=== PATIENT | male | born 1965 | race African-American/Black ===

== ENCOUNTER 2018-05-30 17:17 | Inpatient (IN) | payer OTHER ==
[2018-05-30] MEDS ORDERED: DEXTROSE 50% 50 ML SYRINGE IV ×2 (19:30)
[2018-05-30] MEDS ORDERED: GLUCOSE GEL 15 GRAM TUBE PO ×2 (19:30)
[2018-05-30] MEDS ORDERED: GLUCOSE GEL 15 GRAM TUBE BUCCAL (19:30)
[2018-05-30] MEDS ORDERED: GLUCAGON 1 MG INJ IM (19:30)
[2018-05-30] MEDS ORDERED: **FLU VACCINE PREVIOUSLY DISPENSED XX (20:00)
[2018-05-30] MEDS: SOD CHLORIDE 0.45% 1,000 ML IV (20:40)
[2018-05-30] MEDS: INSULIN ASPART [NOVOLOG] 3 ML PEN SC (21:00)
[2018-05-31] MEDS: morphine 4 MG/ML VIAL IV ×4 (01:03→20:53)
[2018-05-31] MEDS: ACCU-CHEK XX (02:00)
[2018-05-31] MEDS: INSULIN ASPART [NOVOLOG] 3 ML PEN SC ×4 (08:00→21:00)
[2018-05-31] MEDS ORDERED: VANCOMYCIN IV PER PHARMACY XX (08:30)
[2018-05-31] MEDS: SOD CHLORIDE 0.45% 1,000 ML IV (08:50)
[2018-05-31] MEDS ORDERED: CADEXOMER IODINE TP (09:00)
[2018-05-31] MEDS ORDERED: BUPROPION (SR) 150 MG TAB PO (09:00)
[2018-05-31] MEDS ORDERED: HEPARIN 5,000 UNIT/0.5 ML VIAL ×2 (09:49→20:23)
[2018-05-31] MEDS: TOLTERODINE (SR) 4 MG CAP PO (09:53)
[2018-05-31] MEDS: CEFTRIAXONE 1 GM/50 ML (PMX) 50 ML IVPB (09:53)
[2018-05-31] MEDS: FOLIC ACID 1 MG TAB PO (09:53)
[2018-05-31] MEDS: METOPROLOL 50 MG TAB PO ×2 (09:54→20:40)
[2018-05-31] MEDS: MULTIVITAMINS 10 ML, THIAMINE 100 MG, FOLIC ACID 1 MG in SOD CHLORIDE 0.9% 1,000 ML IVPB (09:55)
[2018-05-31] MEDS: HEPARIN 5,000 UNIT/1 ML VIAL SC ×2 (09:57→20:50)
[2018-05-31 10:40] LABS: ALANINE AMINOTRANSFERASE 65 IU/L (13-69); ALBUMIN 3.2 g/dl (3.3-4.9); ALBUMIN/GLOBULIN RATIO 0.69; ALKALINE PHOSPHATASE 86 IU/L (42-121); ANION GAP 10 (5-13); ASPARTATE AMINO TRANSFERASE 113 IU/L (15-46); BILIRUBIN,INDIRECT 0.5 mg/dl (0-1.1); BILIRUBIN,TOTAL 0.5 mg/dl (0.2-1.3); BLOOD UREA NITROGEN 9 mg/dl (7-20); CALCIUM 8.8 mg/dl (8.4-10.2); CARBON DIOXIDE 23 mmol/L (21-31); CHLORIDE 105 mmol/L (97-110); CREATININE 0.71 mg/dl (0.61-1.24); Estimated GFR > 60 mL/min (>60); GLUCOSE 134 mg/dl (70-220); MAGNESIUM 1.5 mg/dl (1.7-2.5); PHOSPHORUS 3.8 mg/dl (2.5-4.9); POTASSIUM 4.2 mmol/L (3.5-5.1); SODIUM 138 mmol/L (135-144); TOTAL PROTEIN 7.8 g/dl (6.1-8.1)
[2018-05-31] MEDS: VANCOMYCIN 2 GM in SOD CHLORIDE 0.9% 500 ML IVPB (11:06)
[2018-05-31] MEDS: CHLORDIAZEPOXIDE 25 MG CAP PO ×3 (11:06→20:41)
[2018-05-31] MEDS ORDERED: IBUPROFEN 800 MG TAB PO (12:30)
[2018-05-31] MEDS: MAGNESIUM SULFATE 2 GM/50 ML 50 ML IVPB (12:30)
[2018-05-31] MEDS: NIFEdipine (XL) 60 MG TAB PO (14:13)
[2018-05-31] MEDS: GABAPENTIN 100 MG CAP PO ×2 (14:13→20:41)
[2018-05-31] MEDS: LISINOPRIL 20 MG TAB PO (14:13)
[2018-05-31] MEDS: AQUAPHOR 52.5 GM OINT TOP (14:14)
[2018-05-31 14:22] LABS: ADD MAN DIFF? NO
[2018-05-31 14:23] LABS: BASOPHILS % 0.2 % (0.0-2.0); EOSINOPHILS # 0.1 10^3/ul (0.0-0.5); EOSINOPHILS % 1.6 % (0.0-7.0); HEMOGLOBIN 12.4 g/dl (14.0-18.0); LYMPHOCYTES # 1.9 10^3/ul (0.8-2.9); LYMPHOCYTES % 44.5 % (15.0-51.0); MEAN CORPUSCULAR HEMOGLOBIN 27.4 pg (29.0-33.0); MEAN CORPUSCULAR HGB CONC 31.8 g/dl (32.0-37.0); MEAN CORPUSCULAR VOLUME 86.1 fl (82.0-101.0); MEAN PLATELET VOLUME 10.1 fl (7.4-10.4); MONOCYTE # 0.5 10^3/ul (0.3-0.9); MONOCYTES % 11.1 % (0.0-11.0); NEUTROPHIL # 1.8 10^3/ul (1.6-7.5); NEUTROPHILS % 42.4 % (39.0-77.0); PLATELET COUNT 230 10^3/UL (140-415); RED BLOOD COUNT 4.53 10^6/ul (4.70-6.10); RED CELL DISTRIBUTION WIDTH 15.7 % (11.5-14.5)
[2018-05-31 14:23] LABS: WHITE BLOOD COUNT 4.3 10^3/ul (4.8-10.8)
[2018-05-31] MEDS: MAGNESIUM SULFATE 1 GM/D5W 50 ML IVPB ×2 (17:43→20:53)
[2018-05-31 20:26] LABS: C-REACTIVE PROTEIN < 0.5 mg/dl (0.0-0.9)
[2018-05-31] MEDS: LACTOBACILLUS RHAMNOSUS CAP PO (20:40)
[2018-05-31 21:14] LABS: ERYTHROCYTE SEDIMENTATION RATE 35 mm/Hr (0-20)
[2018-05-31] MEDS: VANCOMYCIN 1.75 GM in SOD CHLORIDE 0.9% 500 ML IVPB (22:48)
[2018-06-01] MEDS: HYDROCODONE/APAP (10/325) TAB PO (00:09)
[2018-06-01] MEDS: ACCU-CHEK XX (02:00)
[2018-06-01] MEDS: SOD CHLORIDE 0.45% 1,000 ML IV ×2 (03:44→23:06)
[2018-06-01] MEDS: morphine 4 MG/ML VIAL IV ×3 (05:16→18:43)
[2018-06-01 05:58] LABS: ADD MAN DIFF? NO
[2018-06-01 06:01] LABS: BASOPHILS % 0.2 % (0.0-2.0); EOSINOPHILS # 0.1 10^3/ul (0.0-0.5); HEMATOCRIT 37.8 % (42.0-52.0); HEMOGLOBIN 12.1 g/dl (14.0-18.0); LYMPHOCYTES # 2.5 10^3/ul (0.8-2.9); LYMPHOCYTES % 55.1 % (15.0-51.0); MEAN CORPUSCULAR HEMOGLOBIN 27.5 pg (29.0-33.0); MEAN CORPUSCULAR VOLUME 85.9 fl (82.0-101.0); MEAN PLATELET VOLUME 10.2 fl (7.4-10.4); MONOCYTE # 0.5 10^3/ul (0.3-0.9); MONOCYTES % 10.3 % (0.0-11.0); NEUTROPHIL # 1.4 10^3/ul (1.6-7.5); PLATELET COUNT 222 10^3/UL (140-415); RED CELL DISTRIBUTION WIDTH 15.9 % (11.5-14.5)
[2018-06-01 06:01] LABS: WHITE BLOOD COUNT 4.5 10^3/ul (4.8-10.8)
[2018-06-01 06:22] LABS: INR 1.05; PROTIME 13.8 Sec (11.9-14.9); PT RATIO 1.1
[2018-06-01 06:43] LABS: ALANINE AMINOTRANSFERASE 65 IU/L (13-69); ALBUMIN 3.2 g/dl (3.3-4.9); ALBUMIN/GLOBULIN RATIO 0.76; ALKALINE PHOSPHATASE 76 IU/L (42-121); ANION GAP 8 (5-13); ASPARTATE AMINO TRANSFERASE 100 IU/L (15-46); BILIRUBIN,INDIRECT 0.4 mg/dl (0-1.1); BILIRUBIN,TOTAL 0.4 mg/dl (0.2-1.3); BLOOD UREA NITROGEN 10 mg/dl (7-20); CALCIUM 8.9 mg/dl (8.4-10.2); CARBON DIOXIDE 24 mmol/L (21-31); CHLORIDE 105 mmol/L (97-110); CREATININE 0.68 mg/dl (0.61-1.24); Estimated GFR > 60 mL/min (>60); GLUCOSE 94 mg/dl (70-220); MAGNESIUM 1.8 mg/dl (1.7-2.5); POTASSIUM 4.2 mmol/L (3.5-5.1); SODIUM 137 mmol/L (135-144); TOTAL PROTEIN 7.4 g/dl (6.1-8.1)
[2018-06-01] MEDS: INSULIN ASPART [NOVOLOG] 3 ML PEN SC ×4 (08:00→21:00)
[2018-06-01] MEDS ORDERED: HEPARIN 5,000 UNIT/0.5 ML VIAL ×2 (08:25→20:53)
[2018-06-01] MEDS: MULTIVITAMINS 10 ML, THIAMINE 100 MG, FOLIC ACID 1 MG in SOD CHLORIDE 0.9% 1,000 ML IVPB (08:36)
[2018-06-01] MEDS: TOLTERODINE (SR) 4 MG CAP PO (08:36)
[2018-06-01] MEDS: CHLORDIAZEPOXIDE 25 MG CAP PO ×3 (08:36→21:21)
[2018-06-01] MEDS: CEFTRIAXONE 1 GM/50 ML (PMX) 50 ML IVPB (08:36)
[2018-06-01] MEDS: NIFEdipine (XL) 60 MG TAB PO (08:37)
[2018-06-01] MEDS: GABAPENTIN 100 MG CAP PO ×3 (08:37→21:21)
[2018-06-01] MEDS: BUPROPION (SR) 100 MG TAB PO (08:37)
[2018-06-01] MEDS: METOPROLOL 50 MG TAB PO ×2 (08:37→21:22)
[2018-06-01] MEDS: LACTOBACILLUS RHAMNOSUS CAP PO ×2 (08:37→21:22)
[2018-06-01] MEDS: FOLIC ACID 1 MG TAB PO (08:38)
[2018-06-01] MEDS: LISINOPRIL 20 MG TAB PO (08:38)
[2018-06-01] MEDS: HEPARIN 5,000 UNIT/1 ML VIAL SC ×2 (08:41→21:26)
[2018-06-01] MEDS: NICOTINE (14 MG/24 HR) PATCH TRANSDERM (09:00)
[2018-06-01] MEDS: THIAMINE 100 MG TAB PO (09:33)
[2018-06-01] MEDS: AQUAPHOR 52.5 GM OINT TOP (09:34)
[2018-06-01] MEDS: VANCOMYCIN 1.75 GM in SOD CHLORIDE 0.9% 500 ML IVPB ×2 (12:25→23:49)
[2018-06-01] MEDS ORDERED: LIDOCAINE 1% (MPF) 30 ML INJ INJ (14:30)
[2018-06-01 23:09] LABS: VANCOMYCIN,TROUGH 15.7 ug/ml (10.0-20.0)
[2018-06-02] MEDS: ACCU-CHEK XX (02:00)
[2018-06-02] MEDS: morphine 4 MG/ML VIAL IV ×2 (02:17→09:34)
[2018-06-02] MEDS: INSULIN ASPART [NOVOLOG] 3 ML PEN SC (08:00)
[2018-06-02] MEDS: NICOTINE (14 MG/24 HR) PATCH TRANSDERM (09:00)
[2018-06-02] MEDS: MULTIVITAMINS 10 ML, THIAMINE 100 MG, FOLIC ACID 1 MG in SOD CHLORIDE 0.9% 1,000 ML IVPB (09:00)
[2018-06-02] MEDS ORDERED: HEPARIN 5,000 UNIT/0.5 ML VIAL (09:06)
[2018-06-02] MEDS: CEFTRIAXONE 1 GM/50 ML (PMX) 50 ML IVPB (09:16)
[2018-06-02] MEDS: METOPROLOL 50 MG TAB PO (09:18)
[2018-06-02] MEDS: LISINOPRIL 20 MG TAB PO (09:18)
[2018-06-02] MEDS: FOLIC ACID 1 MG TAB PO (09:18)
[2018-06-02] MEDS: CHLORDIAZEPOXIDE 25 MG CAP PO ×2 (09:18→13:03)
[2018-06-02] MEDS: BUPROPION (SR) 100 MG TAB PO (09:18)
[2018-06-02] MEDS: NIFEdipine (XL) 60 MG TAB PO (09:18)
[2018-06-02] MEDS: LACTOBACILLUS RHAMNOSUS CAP PO (09:18)
[2018-06-02] MEDS: TOLTERODINE (SR) 4 MG CAP PO (09:18)
[2018-06-02] MEDS: THIAMINE 100 MG TAB PO (09:19)
[2018-06-02] MEDS: GABAPENTIN 100 MG CAP PO ×2 (09:19→13:03)
[2018-06-02] MEDS: AQUAPHOR 52.5 GM OINT TOP (09:19)
[2018-06-02] MEDS: HEPARIN 5,000 UNIT/1 ML VIAL SC (09:28)
[2018-06-02] MEDS: VANCOMYCIN 1.75 GM in SOD CHLORIDE 0.9% 500 ML IVPB (11:23)
[2018-06-02] MEDS: AMOXICILLIN/CLAV 875 MG TAB PO (13:03)
== END 2018-06-02 17:35 | disposition home or self-care (01) | DRG 623 ==
LOC: 2NE 17:17
PROVIDERS: Internal Medicine
PROC: 0JBR0ZZ Excision of Left Foot Subcutaneous Tissue and Fascia, Open Approach (ICD-10-PCS; principal; 2018-05-31)
PROC: 0JBQ0ZZ Excision of Right Foot Subcutaneous Tissue and Fascia, Open Approach (ICD-10-PCS; 2018-05-31)
DX: E10.621 Type 1 diabetes mellitus with foot ulcer (principal); L03.115 Cellulitis of right lower limb; I83.215 Varicose veins of right lower extremity with both ulcer other part of foot and inflammation; F10.239 Alcohol dependence with withdrawal, unspecified; I50.30 Unspecified diastolic (congestive) heart failure; L97.519 Non-pressure chronic ulcer of other part of right foot with unspecified severity; E10.628 Type 1 diabetes mellitus with other skin complications; I87.2 Venous insufficiency (chronic) (peripheral); F10.229 Alcohol dependence with intoxication, unspecified; F32.9 Major depressive disorder, single episode, unspecified; Z91.14 Patient's other noncompliance with medication regimen; F17.210 Nicotine dependence, cigarettes, uncomplicated; I11.0 Hypertensive heart disease with heart failure; Z86.31 Personal history of diabetic foot ulcer; G40.909 Epilepsy, unspecified, not intractable, without status epilepticus; L97.529 Non-pressure chronic ulcer of other part of left foot with unspecified severity; M21.40 Flat foot [pes planus] (acquired), unspecified foot; E10.40 Type 1 diabetes mellitus with diabetic neuropathy, unspecified; E88.81 Metabolic syndrome and other insulin resistance
CPT/HCPCS: 73610; 73610-RT; 73630; 73630-LT; 80053; 80202; 82962; 83735; 84100; 84443; 85025; 85610; 85651; 86140; 87070; 97116; 97161; 97530